=== PATIENT | male | born 1945 | race Hispanic/Latino ===

== ENCOUNTER 2023-04-01 10:38 | Day surgery (SDC) | payer OTHER ==
[2023-04-01 11:42] LABS: BASOPHILS # (AUTO) 0.03 K/uL (0.00-0.20); BASOPHILS % (AUTO) 0.4 % (0.0-5.0); EOSINOPHILS # (AUTO) 0.16 K/uL (0.00-0.70); EOSINOPHILS % (AUTO) 2.1 % (0.0-8.0); HEMATOCRIT 46.4 % (42-54); IMMATURE GRANULOCYTE ABSOLUTE 0.01 K/uL (0-1); MEAN CORPUSCULAR HEMOGLOBIN 29.4 pg (27.0-33.0); MEAN CORPUSCULAR HGB CONC 34.1 g/dL (32.0-36.0); MEAN CORPUSCULAR VOLUME 86.4 fL (79-99); MONOCYTES # (AUTO) 0.6 K/uL (0.1-1.0); NEUTROPHILS # (AUTO) 4.7 K/uL (1.8-7.7); NEUTROPHILS % (AUTO) 63.4 % (40.0-77.0); PLATELET COUNT (AUTO) 230 K/uL (130-400); RED BLOOD CELL COUNT(AUTO) 5.37 MIL/uL (4.50-6.20); RED CELL DISTRIBUTION WIDTH 13.2 % (11.0-15.5); WHITE BLOOD COUNT (AUTO) 7.5 K/uL (4.8-10.8)
[2023-04-01 11:55] LABS: INR 0.94 (0.85-1.15); PROTHROMBIN TIME 10.9 SEC (9.6-11.6)
[2023-04-01 11:56] LABS: PARTIAL THROMBOPLASTIN TIME 30.7 SEC (26.3-35.5)
[2023-04-01] MEDS ORDERED: DOCU100P MC (12:07)
[2023-04-01] MEDS ORDERED: LOSA50TA64 PO (12:07)
[2023-04-01] MEDS ORDERED: SIMV-46 PO (12:07)
[2023-04-01] MEDS ORDERED: TRAZ-185 PO (12:07)
[2023-04-01] MEDS ORDERED: TIOT4MIS2 IH (12:07)
[2023-04-01] MEDS ORDERED: ATEN25TA PO (12:07)
[2023-04-01] MEDS ORDERED: FURO20TA4 PO (12:07)
[2023-04-01] MEDS ORDERED: FINA5TAB41 PO (12:07)
[2023-04-01] MEDS ORDERED: PANT40GR PO (12:07)
[2023-04-01] MEDS ORDERED: MULT-1367 PO (12:07)
[2023-04-01] MEDS ORDERED: 0.9%NACL 1000ML 1,000 ML IV ONE (12:13)
[2023-04-01] MEDS ORDERED: MIDAZOLAM HCL 1 MG/ML 2ML VIAL ONE (12:55)
[2023-04-01] MEDS ORDERED: FENTANYL CITRATE PF 50 MCG/1 ML 2ML VIAL ONE (12:55)
[2023-04-01] MEDS ORDERED: ACETAMINOPHEN WITH CODEINE 1 TAB TAB PO PRN (14:00)
== END 2023-04-01 15:05 | disposition home or self-care (01) ==
LOC: DAH 10:38
PROVIDERS: ATTEND Nurse Practitioner Family
DX: R91.1 Solitary pulmonary nodule (principal); J84.10 Pulmonary fibrosis, unspecified; J98.4 Other disorders of lung; J90 Pleural effusion, not elsewhere classified; J44.9 Chronic obstructive pulmonary disease, unspecified; G47.00 Insomnia, unspecified; I12.9 Hypertensive chronic kidney disease with stage 1 through stage 4 chronic kidney disease, or unspecified chronic kidney disease; N18.2 Chronic kidney disease, stage 2 (mild); R73.03 Prediabetes; E78.2 Mixed hyperlipidemia; F32.9 Major depressive disorder, single episode, unspecified; I25.10 Atherosclerotic heart disease of native coronary artery without angina pectoris; J43.9 Emphysema, unspecified; I73.9 Peripheral vascular disease, unspecified; Z79.01 Long term (current) use of anticoagulants; Z79.899 Other long term (current) drug therapy; Z87.891 Personal history of nicotine dependence; Z80.0 Family history of malignant neoplasm of digestive organs
CPT/HCPCS: 32408; 85025; 85610; 85730; 36415; 88305; 71045; J3010; J7030; J2250; C1887; A4215; A4221; A4663; A4216; A4606; A4223 ×3; 32405; 77012